=== PATIENT | male | born 1995 | race African-American/Black ===

== ENCOUNTER 2018-09-18 10:54 | Emergency (ER) | payer BC, MEDICAID ==
[~2018-09-18] VITALS: Ht 170.2 cm; Wt 70.0 kg
[2018-09-18 12:37] LABS: CHLORIDE 103 mEq/L (98-107)
[2018-09-18] MEDS: SODIUM CHLORIDE 0.9% 1,000 ML IV ONE (12:38)
[2018-09-18] MEDS: ONDANSETRON HCL 4MG/2ML INJ IV STA (12:38)
[2018-09-18 12:59] LABS: CLARITY URINE CLOUDY (CLEAR); COLOR URINE DARK YELLOW (YELLOW); KETONES URINE TRACE (NEGATIVE); LEUKOCYTE ESTERASE URINE NEGATIVE (NEGATIVE); NITRITE URINE NEGATIVE (NEGATIVE); OCCULT BLOOD URINE NEGATIVE (NEGATIVE); PROTEIN URINE 2+ (NEGATIVE); SPECIFIC GRAVITY URINE 1.039 (1.005-1.030)
[2018-09-18 13:02] LABS: BASOPHILS % 0.2 % (0.0-2.0); EOSINOPHILS % 1.4 % (0.0-5.0); HEMATOCRIT. 54.9 % (42.0-52.0); HEMOGLOBIN. 18.7 g/dL (14.0-18.0); LYMPHOCYTES % 9.8 % (20.0-50.0); MEAN CORPUSCULAR HEMOGLOBIN 30.5 pg (28.0-32.0); MEAN CORPUSCULAR VOLUME 89.8 fL (80.0-94.0); MEAN PLATELET VOLUME 8.6 fl (7.4-10.4); MONOCYTES % 8.4 % (2.0-8.0); NEUTROPHILS % 80.2 % (40.0-76.0); PLATELET 354 x1000/uL (130-400); RED BLOOD CELL COUNT 6.12 mill/uL (4.7-6.1); RED CELL DISTRIBUTION WIDTH 13.4 % (11.6-14.6)
[2018-09-18 14:47] VITALS: BP 123/68
== END 2018-09-18 14:50 | disposition home or self-care (01) ==
LOC: ER 10:54
DX: R19.7 Diarrhea, unspecified (principal); R11.2 Nausea with vomiting, unspecified; R50.9 Fever, unspecified; J45.909 Unspecified asthma, uncomplicated; Z88.5 Allergy status to narcotic agent
CPT/HCPCS: 36415; 80053; 81003; 85025; 86850; 86900; 86901; 96361; 96374; 99283; J2405; J7030

== ENCOUNTER 2018-11-15 11:23 | Emergency (ER) | payer BC ==
[~2018-11-15] VITALS: Ht 172.7 cm; Wt 73.0 kg
[2018-11-15 12:05] VITALS: BP 123/59
[2018-11-15] MEDS ORDERED: CEFTRIAXONE SODIUM 250 MG/VIAL IM ONE (12:30)
[2018-11-15] MEDS ORDERED: AZITHROMYCIN 500 MG TABLET PO ONE (12:30)
[2018-11-15] MEDS ORDERED: PENICILLIN G BENZATHINE 2,400,000 UNITS/4ML SYR IM ONE (12:30)
[2018-11-15] MEDS ORDERED: LIDOCAINE HCL 1% 20ML VIAL (Pyxis) INJ INFIL ONE (12:30)
== END 2018-11-15 14:27 | disposition home or self-care (01) ==
LOC: ER 11:44
DX: N48.5 Ulcer of penis (principal); J45.909 Unspecified asthma, uncomplicated; Z11.3 Encounter for screening for infections with a predominantly sexual mode of transmission; Z87.09 Personal history of other diseases of the respiratory system; Z88.6 Allergy status to analgesic agent
CPT/HCPCS: 96372; 99283; J0561; J0696; J3490

== ENCOUNTER 2019-05-28 10:45 | Emergency (ER) | payer SELFPAY ==
[~2019-05-28] VITALS: Ht 172.7 cm; Wt 73.0 kg
[2019-05-28 11:38] VITALS: BP 139/89
[2019-05-28] MEDS ORDERED: PENICILLIN G BENZATHINE 2,400,000 UNITS/4ML SYR IM ONE (12:15)
[2019-05-28] MEDS ORDERED: CEFTRIAXONE SODIUM 250 MG/VIAL IM ONE (12:15)
[2019-05-28] MEDS ORDERED: AZITHROMYCIN 500 MG TABLET PO ONE (12:15)
[2019-05-28] MEDS ORDERED: LIDOCAINE HCL 1% 20ML VIAL (Pyxis) INJ INFIL ONE (12:30)
[2019-05-28 13:35] LABS: CLARITY URINE CLOUDY (CLEAR); COLOR URINE YELLOW (YELLOW); KETONES URINE NEGATIVE (NEGATIVE); LEUKOCYTE ESTERASE URINE 3+ (NEGATIVE); NITRITE URINE NEGATIVE (NEGATIVE); OCCULT BLOOD URINE NEGATIVE (NEGATIVE); PH URINE 7.5 (4.5-8.0); PROTEIN URINE NEGATIVE (NEGATIVE); UROBILINOGEN URINE 0.2 E.U./dL (0.2-1.0)
[2019-05-30 04:07] LABS: CHLAMYDIA TRACHOMATIS NAA Negative (Negative); NEISSERIA GONORRHOEAE NAA Positive (Negative)
[2019-05-30 13:11] LABS: HIV 1 ABS Positive (Negative); HIV 2 ABS Negative (Negative); HIV SCREEN 4G Reactive (Non Reactive); INTERPRETATION HIV-1 Positive (.)
== END 2019-05-28 15:38 | disposition home or self-care (01) ==
LOC: ER 10:45
DX: R36.9 Urethral discharge, unspecified (principal); B20 Human immunodeficiency virus [HIV] disease; J45.909 Unspecified asthma, uncomplicated; Z88.6 Allergy status to analgesic agent
CPT/HCPCS: 81003; 86592; 86701; 86702; 86703; 87086; 87389; 87491; 87591; 96372; 99283; J0561; J0696; J3490; Z7610

== ENCOUNTER 2021-08-13 17:11 | Emergency (ER) | payer MEDICAID, OTHER ==
[~2021-08-13] VITALS: Ht 175.3 cm; Wt 77.0 kg
[2021-08-13 17:50] LABS: BASOPHILS % 0.8 % (0.0-2.0); EOSINOPHILS % 3.7 % (0.0-5.0); HEMATOCRIT. 40.5 % (42.0-52.0); HEMOGLOBIN. 13.9 g/dL (14.0-18.0); MEAN CORPUSCULAR HEMOGLOBIN 30.7 pg (28.0-32.0); MEAN CORPUSCULAR VOLUME 89.4 fL (80.0-94.0); MEAN PLATELET VOLUME 8.1 fl (7.4-10.4); MONOCYTES % 8.7 % (2.0-8.0); NEUTROPHILS % 63.8 % (40.0-76.0); PLATELET 380 x1000/uL (130-400); RED BLOOD CELL COUNT 4.53 mill/uL (4.7-6.1); RED CELL DISTRIBUTION WIDTH 12.4 % (11.6-14.6)
[2021-08-13 17:58] LABS: CHLORIDE 106 mEq/L (98-107)
[2021-08-13] MEDS ORDERED: METRONIDAZOLE 50MG/ML 1ML ORAL SYR(NEO) PO ONE (18:15)
[2021-08-13] MEDS ORDERED: AZITHROMYCIN 500 MG TABLET PO ONE (18:15)
[2021-08-13] MEDS ORDERED: CEFTRIAXONE SODIUM 500 MG/VIAL IM ONE (18:15)
[2021-08-13] MEDS ORDERED: METRONIDAZOLE 500MG TABLET PO NR (18:31)
[2021-08-13] MEDS ORDERED: AZITHROMYCIN 500 MG TABLET PO NR (18:31)
[2021-08-13] MEDS ORDERED: CEFTRIAXONE SODIUM 500 MG/VIAL IM NR (18:31)
[2021-08-13 21:55] VITALS: BP 131/74
== END 2021-08-13 21:58 | disposition home or self-care (01) ==
LOC: ER 17:11
DX: A54.9 Gonococcal infection, unspecified (principal); B20 Human immunodeficiency virus [HIV] disease; J45.909 Unspecified asthma, uncomplicated; Z22.4 Carrier of infections with a predominantly sexual mode of transmission; Z88.6 Allergy status to analgesic agent
CPT/HCPCS: 36415; 70450; 70486; 74177; 80053; 83690; 85025; 96372; 99285; J0696